=== PATIENT | male | born 1970 | race Hispanic/Latino ===

== ENCOUNTER 2019-05-28 02:41 | Emergency (ER) | payer SELFPAY ==
[2019-05-28] MEDS ORDERED: IPRATROPIUM BROM 0.5MG/2.5ML ONE (03:19)
[2019-05-28] MEDS ORDERED: ALBUTEROL 2.5 MG/3 ML NEB SOL ONE ×2 (03:19→04:21)
[2019-05-28 03:42] LABS: Absolute Lymphocytes (CBC) 0.6 K/uL (0.7-4.9); Basophils % 0.6 % (0-1.3); Hematocrit 47.2 % (39.6-49.0); Lymphocytes % 10.8 % (15.3-44.8); MPV 9.4 fL (7.6-11.3); RBC Red Blood Cell Count 5.39 M/uL (4.33-5.43)
[2019-05-28 03:54] LABS: ALT/SGPT 33 U/L (12-78); AST/SGOT 29 U/L (15-37); Albumin 3.4 g/dL (3.4-5.0); Alkaline Phosphatase 106 U/L (45-117); BUN Blood Urea Nitrogen 13 mg/dL (7-18); Bicarbonate 32 mmol/L (21-32); Bilirubin Direct 0.2 mg/dL (0-0.2); Bilirubin Total 0.6 mg/dL (0.2-1.0); Glucose Level 103 mg/dL (74-106); Lipase 244 U/L (73-393); Potassium 3.9 mmol/L (3.5-5.1); Protein, Total 7.6 g/dL (6.4-8.2); Sodium Level 135 mmol/L (136-145)
[2019-05-28] MEDS ORDERED: METHYLPREDNISOLONE 125 MG INJ ONE (04:21)
--- NOTE | 2019-05-28 05:11 | ER ---
Nurse's Notes [facility] Name: Mello Lucas Jr Age: 48 yrs Sex: Male : 1970 Arrival Date: 05/28/2019 Time: 02:44 Bed 14 Private MD: Diagnosis: Acute bronchospasm Presentation: 05/28 02:59 Presenting complaint: Patient states: non-productive cough x 3 days. States, "Last time aa1 I had a cough like this I had a bunch of fluid in my chest and my oxygen was 57 so they told me if I have a cough like this again to go to the ER." RA O2 sat 88% which increased to 93% on 2L. Transition of care: patient was not received from another setting of care. Onset of symptoms was May 26, 2019. Risk Assessment: Do you want to hurt yourself or someone else? Patient reports no desire to harm self or others. Initial Sepsis Screen: Does the patient meet any 2 criteria? HR > 90 bpm. Does the patient have a suspected source of infection? Yes: Productive cough/pneumonia. Care prior to arrival: None. 02:59 Method Of Arrival: Ambulatory aa1 02:59 Acuity: ERENDIRA 3 aa1 Triage Assessment: 03:02 General: Appears in no apparent distress. comfortable, Behavior is calm, cooperative, aa1 appropriate for age. Pain: Denies pain. Historical: - Allergies: 03:02 No Known Allergies; aa1 - Home Meds: 03:02 None [Active]; aa1 - PMHx: 03:02 Pneumothorax; aa1 - PSHx: 03:02 None; aa1 - Immunization history:: Flu vaccine is not up to date. - Social history:: Smoking status: Patient/guardian denies using tobacco. - Ebola Screening: : Patient denies exposure to infectious person Patient denies travel to an Ebola-affected area in the 21 days before illness onset. Screenin:00 Abuse screen: Denies threats or abuse. Denies injuries from another. Nutritional aa1 screening: No deficits noted. Tuberculosis screening: No symptoms or risk factors identified. Fall Risk None identified. Assessment: 02:54 General: Appears in no apparent distress. comfortable, Behavior is calm, cooperative, jb4 appropriate for age. Pain: Complains of pain in abdomen Pain does not radiate. Pain currently is 4 out of 10 on a pain scale. Neuro: Level of Consciousness is awake, alert, obeys commands, Oriented to person, place, time, situation. Cardiovascular: Patient's skin is warm and dry. Respiratory: Reports cough that is non-productive, Airway is patent Respiratory effort is even, unlabored, Respiratory pattern is regular, symmetrical, Breath sounds with rhonchi bilaterally. GI: Abdomen is round non-distended. : No signs and/or symptoms were reported regarding the genitourinary system. EENT: No signs and/or symptoms were reported regarding the EENT system. Derm: Skin is intact, Skin is pink, warm \\T\\ dry. Musculoskeletal: Circulation, motion, and sensation intact. Range of motion: intact in all extremities. 03:58 Reassessment: Patient appears in no apparent distress at this time. Patient and/or jb4 family updated on plan of care and expected duration. Pain level reassessed. Patient is alert, oriented x 3, equal unlabored respirations, skin warm/dry/pink. Patient states symptoms have improved. 04:03 Reassessment: Pt verbalizes having sleep apnea. Placed back on 2l NC to help while jb4 sleeping. 04:56 Reassessment: Patient appears in no apparent distress at this time. Patient and/or jb4 family updated on plan of care and expected duration. Pain level reassessed. Patient is alert, oriented x 3, equal unlabored respirations, skin warm/dry/pink. PT no longer desating while sleeping with cannula on. Patient states feeling better. 05:23 Reassessment: Patient appears in no apparent distress at this time. Patient and/or jb4 family updated on plan of care and expected duration. Pain level reassessed. Patient is alert, oriented x 3, equal unlabored respirations, skin warm/dry/pink. Patient states feeling better. Patient states symptoms have improved. Vital Signs: 02:55 BP 130 / 73; Pulse 98; Resp 20; Temp 98.8; Pulse Ox 88% on R/A; Weight 149.69 kg; aa1 Height 5 ft. 6 in. (167.64 cm); Pain 0/10; 03:00 Pulse Ox 93% on 2 lpm NC; aa1 03:58 BP 130 / 90; Pulse 78; Resp 16; Pulse Ox 95% on R/A; jb4 04:40 BP 116 / 68; Pulse 81; Resp 18; Pulse Ox 96% on 2 lpm NC; jb4 05:24 BP 114 / 56; Pulse 102; Resp 18; Pulse Ox 96% on R/A; jb4 02:55 Body Mass Index 53.26 (149.69 kg, 167.64 cm) aa1 ED Course: 02:44 Patient arrived in ED. ds1 02:55 Arm band placed on right wrist. Patient placed in an exam room, on a stretcher, on aa1 oxygen, on pulse oximetry. 03:00 Valentin Rodriguez MD is Attending Physician. tw4 03:00 Patient has correct armband on for positive identification. Bed in low position. Call aa1 light in reach. Pulse ox on. NIBP on. 03:00 Oxygen administration via nasal cannula \\T\\ 2L/min. aa1 03:02 Triage completed. aa1 03:02 Suraj Buckley, RN is Primary Nurse. jb4 03:12 Lipase Sent. ds4 03:12 Hepatic Function Sent. ds4 03:12 Creatinine for Radiology Sent. ds4 03:12 CBC with Diff Sent. ds4 03:12 Basic Metabolic Panel Sent. ds4 03:58 CXR XRAY In Process Unspecified. EDMS 05:24 No provider procedures requiring assistance completed. IV discontinued, intact, jb4 bleeding controlled, No redness/swelling at site. Pressure dressing applied. Administered Medications: 03:25 Drug: DuoNeb (3:1) (2.5 mg - 0.5 mg) 3 ml Route: Nebulizer; jb4 04:16 Follow up: Response: No adverse reaction; Marked relief of symptoms jb4 04:25 Drug: SOLU-Medrol 125 mg Route: IVP; Site: left antecubital; jb4 05:00 Follow up: Response: No adverse reaction jb4 04:25 Drug: Albuterol 2.5 mg Route: Inhalation; jb4 05:00 Follow up: Response: No adverse reaction; Marked relief of symptoms jb4 Outcome: 05:10 Discharge ordered by . tw4 05:24 Discharged to home ambulatory. jb4 05:24 Condition: stable 05:24 Discharge instructions given to patient, Instructed on discharge instructions, follow up and referral plans. medication usage, Demonstrated understanding of instructions, follow-up care, medications, Prescriptions given X 4. 05:26 Patient left the ED. jb4 Signatures: Dispatcher [employer] EDMS Shyanne Flannery RN RN aa1 Katherine Jones ds1 Lance Hobson ds4 Suraj Buckley RN RN jb4 Valentin Rodriguez MD MD tw4 Corrections: (The following items were deleted from the chart) 03:58 02:54 Respiratory: Airway is patent Respiratory effort is even, unlabored, Respiratory jb4 pattern is regular, symmetrical, jb4 04:58 04:40 BP 116 / 68; Pulse 81bpm; Resp 18bpm; Pulse Ox 96% RA; jb4 jb4
--- NOTE | 2019-05-28 05:11 | EDPHYS ---
Physician Documentation [facility] Name: Mello Lucas Jr Age: 48 yrs Sex: Male : 1970 Arrival Date: 05/28/2019 Time: 02:44 Bed 14 Private MD: ED Physician Valentin Rodriguez HPI: 05/28 03:20 This 48 yrs old Male presents to ER via Ambulatory with complaints of tw4 Abdominal Pain, Cough. 03:20 The patient or guardian reports cough. Onset: The symptoms/episode began/occurred tw4 today. Severity of symptoms: At their worst the symptoms were moderate, in the emergency department the symptoms are unchanged. Modifying factors: The symptoms are alleviated by nothing, the symptoms are aggravated by nothing. The patient has not experienced similar symptoms in the past. Historical: - Allergies: 03:02 No Known Allergies; aa1 - Home Meds: 03:02 None [Active]; aa1 - PMHx: 03:02 Pneumothorax; aa1 - PSHx: 03:02 None; aa1 - Immunization history:: Flu vaccine is not up to date. - Social history:: Smoking status: Patient/guardian denies using tobacco. - Ebola Screening: : Patient denies exposure to infectious person Patient denies travel to an Ebola-affected area in the 21 days before illness onset. ROS: 03:20 Constitutional: Negative for fever, chills, and weight loss, Eyes: Negative for injury, tw4 pain, redness, and discharge, Cardiovascular: Negative for chest pain, palpitations, and edema, Back: Negative for injury and pain, MS/Extremity: Negative for injury and deformity, Skin: Negative for injury, rash, and discoloration, Neuro: Negative for headache, weakness, numbness, tingling, and seizure. 03:20 Respiratory: Positive for cough, shortness of breath, Negative for dyspnea on exertion, hemoptysis, orthopnea, pleurisy. 03:20 Abdomen/GI: Positive for abdominal pain, Negative for nausea and vomiting, nausea, vomiting, and diarrhea, vomiting, abdominal cramps, abdominal distension. Exam: 05:12 Constitutional: This is a well developed, well nourished patient who is awake, alert, tw4 and in no acute distress. Head/Face: Normocephalic, atraumatic. Eyes: Pupils equal round and reactive to light, extra-ocular motions intact. Lids and lashes normal. Conjunctiva and sclera are non-icteric and not injected. Cornea within normal limits. Periorbital areas with no swelling, redness, or edema. Chest/axilla: Normal chest wall appearance and motion. Nontender with no deformity. No lesions are appreciated. Cardiovascular: Regular rate and rhythm with a normal S1 and S2. No gallops, murmurs, or rubs. Normal PMI, no JVD. No pulse deficits. Abdomen/GI: Soft, non-tender, with normal bowel sounds. No distension or tympany. No guarding or rebound. No evidence of tenderness throughout. Back: No spinal tenderness. No costovertebral tenderness. Full range of motion. Skin: Warm, dry with normal turgor. Normal color with no rashes, no lesions, and no evidence of cellulitis. MS/ Extremity: Pulses equal, no cyanosis. Neurovascular intact. Full, normal range of motion. Neuro: Awake and alert, GCS 15, oriented to person, place, time, and situation. Cranial nerves II-XII grossly intact. Motor strength 5/5 in all extremities. Sensory grossly intact. Cerebellar exam normal. Normal gait. 05:12 Respiratory: mild respiratory distress is noted, Respirations: labored breathing, Breath sounds: wheezing: expiratory that is moderate, is heard diffusely. Vital Signs: 02:55 BP 130 / 73; Pulse 98; Resp 20; Temp 98.8; Pulse Ox 88% on R/A; Weight 149.69 kg; aa1 Height 5 ft. 6 in. (167.64 cm); Pain 0/10; 03:00 Pulse Ox 93% on 2 lpm NC; aa1 03:58 BP 130 / 90; Pulse 78; Resp 16; Pulse Ox 95% on R/A; jb4 04:40 BP 116 / 68; Pulse 81; Resp 18; Pulse Ox 96% on 2 lpm NC; jb4 05:24 BP 114 / 56; Pulse 102; Resp 18; Pulse Ox 96% on R/A; jb4 02:55 Body Mass Index 53.26 (149.69 kg, 167.64 cm) aa1 MDM: 03:11 Patient medically screened. tw4 05:11 Differential Diagnosis: Obstructed Airway Bronchitis Upper Respiratory Infection Asthma tw4 Exacerbation Viral Syndrome. Data reviewed: vital signs, nurses notes. Data interpreted: Pulse oximetry: Interpretation: normal. Counseling: I had a detailed discussion with the patient and/or guardian regarding: the historical points, exam findings, and any diagnostic results supporting the discharge/admit diagnosis, lab results, radiology results. Medication response: albuterol nebulizer treatment(s) relieved the patient's symptoms. The patient is no longer wheezing. Response to treatment: the patient's symptoms have resolved after treatment, the patient is not short of breath, and as a result, I will discharge patient. Special discussion: I discussed with the patient/guardian in detail that at this point there is no indication for admission to the hospital. It is understood, however, that if the symptoms persist or worsen the patient needs to return immediately for re-evaluation. 05/28 03:00 Order name: Basic Metabolic Panel; Complete Time: 04:57 05/28 04:59 Interpretation: Normal except: NA 135. 05/28 03:00 Order name: CBC with Diff; Complete Time: 04:57 4 05/28 04:59 Interpretation: Normal except: LYM% 10.8; MN% 12.7; LIANE% 75.9. 05/28 03:00 Order name: Creatinine for Radiology; Complete Time: 04:57 4 05/28 04:59 Interpretation: Within normal limits: CRE 0.89. 05/28 03:00 Order name: Hepatic Function; Complete Time: 04:57 4 05/28 04:59 Interpretation: Normal except: GLOB 4.2; A/G 0.8. 05/28 03:00 Order name: Lipase; Complete Time: 04:57 4 05/28 04:59 Interpretation: Within normal limits: LIP 244. 05/28 03:19 Order name: CXR XRAY 05/28 03:00 Order name: IV Saline Lock; Complete Time: 03:12 05/28 03:00 Order name: Labs collected and sent; Complete Time: 03:12 tw4 Administered Medications: 03:25 Drug: DuoNeb (3:1) (2.5 mg - 0.5 mg) 3 ml Route: Nebulizer; 4 04:16 Follow up: Response: No adverse reaction; Marked relief of symptoms jb4 04:25 Drug: SOLU-Medrol 125 mg Route: IVP; Site: left antecubital; 4 05:00 Follow up: Response: No adverse reaction jb4 04:25 Drug: Albuterol 2.5 mg Route: Inhalation; jb4 05:00 Follow up: Response: No adverse reaction; Marked relief of symptoms jb4 Disposition: 05/28/19 05:10 Discharged to Home. Impression: Acute bronchospasm. - Condition is Stable. - Discharge Instructions: Bronchospasm, Adult, How to Use an Inhaler, Asthma, Acute Bronchospasm. - Prescriptions for Tessalon Perles 100 mg Oral Capsule - take 1 capsule by ORAL route every 8 hours As needed; 15 capsule. Albuterol Sulfate 2.5 mg /3 mL (0.083 %) Inhalation Solution for Nebulization - inhale 1 unit by NEBULIZATION route every 8 hours As needed; 1 box. Medrol (Umesh) 4 mg Oral Tablets, Dose Pack - take 1 tablet by ORAL route as directed - follow package instructions; 1 packet. Albuterol Sulfate 90 mcg/actuation - inhale 1-2 puff by INHALATION route every 4-6 hours; 1 Inhaler. - Work release form, Medication Reconciliation Form, Thank You Letter, Antibiotic Education, Prescription Opioid Use form. - Follow up: Private Physician; When: Upon discharge from the Emergency Department; Reason: Recheck today's complaints, Continuance of care. - Problem is an ongoing problem. - Symptoms have improved. Signatures: Dispatcher [employer] EDMS Shyanne Flannery RN RN aa1 Suraj Buckley RN RN jb4 Valentin Rodriguez MD MD tw4 Corrections: (The following items were deleted from the chart) 05:12 03:20 Constitutional: This is a well developed, well nourished patient who is awake, tw4 alert, and in no acute distress. Head/Face: Normocephalic, atraumatic. Neck: Trachea midline, no thyromegaly or masses palpated, and no cervical lymphadenopathy. Supple, full range of motion without nuchal rigidity, or vertebral point tenderness. No Meningismus. Chest/axilla: Normal chest wall appearance and motion. Nontender with no deformity. No lesions are appreciated. Cardiovascular: Regular rate and rhythm with a normal S1 and S2. No gallops, murmurs, or rubs. Normal PMI, no JVD. No pulse deficits. Respiratory: Lungs have equal breath sounds bilaterally, clear to auscultation and percussion. No rales, rhonchi or wheezes noted. No increased work of breathing, no retractions or nasal flaring. Back: No spinal tenderness. No costovertebral tenderness. Full range of motion. Skin: Warm, dry with normal turgor. Normal color with no rashes, no lesions, and no evidence of cellulitis. MS/ Extremity: Pulses equal, no cyanosis. Neurovascular intact. Full, normal range of motion. Neuro: Awake and alert, GCS 15, oriented to person, place, time, and situation. Cranial nerves II-XII grossly intact. Motor strength 5/5 in all extremities. Sensory grossly intact. Cerebellar exam normal. Normal gait. tw4 05:26 05:10 05/28/2019 05:10 Discharged to Home. Impression: Acute bronchospasm. Condition is jb4 Stable. Forms are Medication Reconciliation Form, Thank You Letter, Antibiotic Education, Prescription Opioid Use. Follow up: Private Physician; When: Upon discharge from the Emergency Department; Reason: Recheck today's complaints, Continuance of care. Problem is an ongoing problem. Symptoms have improved. tw4
[2019-05-28 05:35] VITALS: TEMP 98.8
[2019-05-28 05:38] VITALS: O2SAT 96
[2019-05-28 05:40] VITALS: BP 114/56
--- NOTE | 2019-05-28 08:05 | RAD REPORT ---
EXAM DESCRIPTION: Ajay Single View05/28/2019 3:54 am CLINICAL HISTORY: Chest pain COMPARISON: none FINDINGS: Mild left upper lobe opacity Right lung appears clear of acute infiltrate The heart is normal size IMPRESSION: Mild left upper lobe opacity probably pneumonia. This should be followed until it is [place] ar to help exclude a post obstructive process/underlying mass
== END 2019-05-28 05:26 | disposition home or self-care (01) ==
LOC: ER 02:41
DX: J98.01 Acute bronchospasm (principal)
CPT/HCPCS: 36415; 71045; 80048; 80076; 83690; 85025; 94640; 96374; 99285; J2930